=== PATIENT | female | born 2005 | race Caucasian/White ===

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

== ENCOUNTER 2024-03-03 07:02 | Emergency (ER) | payer SELFPAY ==
[2024-03-03 07:02] VITALS: BP 132/72; PULSE 75; RESP 14; TEMP 36.3; O2SAT 98; BMI 29.2
--- NOTE | 2024-03-03 07:30 | US_ITS ---
STUDY: ULTRASOUND OF THE FEMALE PELVIS - COMPLETE REASON FOR EXAM: Female, 18 years old. Right pelvic pain LMP: December 29, 2023. TECHNIQUE: Transvaginal TECHNICAL QUALITY: Adequate. COMPARISON: None. FINDINGS: The uterus is anteflexed and is tilted to the right side of the pelvis. The uterus measures 7 cm x 4.2 cm x 3 cm. Normal uterine cervix. The endometrium measures 3.8 mm in thickness, and is hyperechoic. There is no demonstrated endometrial mass. There is no demonstrated myometrial mass. I.U.D. - The patient does not have an I.U.D. The right ovary is visualized. The right ovary measures 2.8 cm x 1.9 cm x 2.3 cm. There is no right ovarian cyst or ovarian mass. There is no visualized right adnexal mass or complex lesion. There is normal arterial and normal venous vascularity. The left ovary is non-visualized due to overlying bowel gas. There is minimal fluid in the cul-de-sac. US/Transvaginal Non- IMPRESSION: Normal female pelvis. Nonvisualization of the left ovary due to overlying bowel gas. Minimal amount of free fluid in the cul-de-sac. Electronically Signed: Cheo Beck MD at 8:42 EDT ,
--- NOTE | 2024-03-03 07:31 | EX.ED.DYSGE1 ---
HPI History of Present Illness Chief Complaint: Nausea/Vomiting Informant: patient Narrative Narrative: 18-year-old female presenting to the emergency room with right sided pelvic pain and vomiting. Patient states that about 5 weeks ago she was experiencing an increase in pelvic pain 2 weeks after starting the ring. She states that she talked to Dr. Vines from [facility] who recommended that she remove the ring and go to the emergency room for imaging which she declined. Patient states now she has been without the ring for about 5 weeks. Last Saturday she began to experience increased pelvic cramping and on began vaginal bleeding which she attributed to the start of her period. She states that she has had increased bleeding/clotting as well as cramping. She notes that yesterday and this morning she was vomiting. She states that she vomits most mornings for an unknown reason. She denies any other medications. No other medical issues. No prior surgeries. She denies fever or vaginal discharge. No urinary symptoms. She notes pain in the right lower pelvis is worse than the left and radiates to the low back. PFSH PFS Medical History no medical history Home Medications ?Medication ?Instructions ?Recorded ?Last Taken ?Type pediatric multivitamin no.17 1 ea PO DAILY 12/08/15 Unknown History (Animal Shapes chewable tablet) famotidine 20 mg tablet 20 mg PO BID #28 TABLETS 12/28/20 Unknown Rx ondansetron 4 mg disintegrating 4 mg PO Q8H PRN PRN Nausea #10 tabs 12/28/20 Unknown Rx tablet hydrocodone-acetaminophen 5-325mg 1 tab PO Q6H PRN PRN Pain 3 days 03/03/24 Unknown Rx 5mg-325mg #12 TABLETS ondansetron 4 mg disintegrating 4 mg PO Q6H PRN PRN Nausea #12 tabs 03/03/24 Unknown Rx tablet Allergy/AdvReac Type Severity Reaction Status Date / Time azithromycin (From Zithromax Allergy Unknown Verified 12/28/20 11:11 Z-Everton) Family History no significant family his Surgical History no surgical history Social History Smoking Status: Never smoker ROS ROS ED Constitutional Constitutional ED: Denies chills, fever(s) or weight loss Eyes Eyes: Denies change in vision or diplopia ENT ENT ED: Denies ear pain, rhinorrhea or sore throat Cardiovascular Cardiovascular: Denies chest pain, orthopnea, palpitations or racing heartbeat Respiratory/Chest Respiratory/Chest: Denies cough, dyspnea or orthopnea Gastrointestinal Gastrointestinal: Denies abdominal pain, diarrhea, nausea or vomiting Genitourinary Genitourinary ED: Reports other Details: Pelvic cramping, heavier menstrual flow with clots ; Denies dysuria, hematuria or urinary frequency Musculoskeletal Musculoskeletal: Reports back pain; Denies arthralgias, myalgias or neck pain Integumentary Denies abscess or rash Neurologic Neurologic: Denies headache(s) or weakness Psychiatric Psychiatric: Denies anxiety, depression, suicidal ideation or suicidal thoughts Endocrine Endocrinology: Denies polydipsia, polyphagia or polyuria Allergic/Immunologic Allergic/Immunologic ED: Denies mouth swelling, tongue swelling or urticaria EXAM Physical Exam Narrative Exam Narrative: 18-year-old female laying comfortably in the bed. She lays supine with hips flexed and feet on the bed. She moves easily. Const Vital Signs: 03/03/24 07:02 03/03/24 09:07 Temperature 97.3 F L Temperature Source Temporal Pulse Rate 75 57 L Respiratory Rate 14 16 Blood Pressure 132/72 H 120/75 Blood Pressure Mean 92 90 Pulse Ox 98 99 Oxygen Delivery Method Room Air Room Air Positive well nourished and well developed General Appearance ED: well developed HEENT Reports normocephalic, head/scalp atraumatic and moist mucous membranes Eyes PERRL and EOMs intact bilaterally Neck no lymphadenopathy, supple and no JVD Resp normal respiratory effort and clear to auscultation bilaterally Cardio regular rate, regular rhythm and no murmurs GI GI Narrative: Patient reports mild tenderness to palpation without guarding or rebound the bilateral pelvis. The abdomen is soft. Inspection: Negative for abdominal distention Auscultation: normoactive bowel sounds Palpation: soft and tender; Negative for guarding or rebound tenderness present Back/Spine no CVA tenderness and normal ROM Extremity normal to inspection General Extremety ED: Negative for edema General Extremity: Negative for edema Neuro oriented x3 and CN's II-XII intact bilaterally Sensorium / Orientation: alert Motor Exam: strength 5/5 throughout Psych mental status grossly normal Mood & Affect: Negative for depressed or tearful Skin no rashes or lesions noted and no wounds MDM MDM MDM Narrative Medical decision making narrative: Differential diagnosis includes but not limited to ovarian torsion ovarian cyst menstrual cramps pelvic abscess UTI kidney stone ectopic hormonal dysregulation White count 10.4 with hemoglobin 12.9 platelet count is 439. Urinalysis with 10-25 red blood cells no overt infection. Red blood cells are most likely contamination from the menstrual cycle. test is negative. Pelvic ultrasound was obtained which shows a mild amount of free fluid in the cul-de-sac. Left ovary not visualized due to overlying bowel gas. But the side of the pain is on the right which does not demonstrate ovarian cyst or abscess or abnormal fluid collection. Patient received IV fluids and Zofran. With the patient to have menstrual cramps. Vomiting can be multifactorial and certainly from pain. Given that she discontinued use of the NuvaRing a couple weeks ago and is now having a heavier than normal cycle hormonal dysregulation would be favored. Patient to schedule follow-up appointment with her [facility]. History & Record Review Discussion w/independent historian: Patient Lab Data Attestation: I reviewed the patient's lab results. Labs: Laboratory Results - last 24 hr 03/03/24 03/03/24 07:37 07:45 WBC 10.4 RBC 5.09 Hgb 12.9 Hct 40.9 MCV 80.4 L MCH 25.3 L MCHC 31.5 L RDW Std Deviation 40.6 RDW Coeff of Can 14.0 Plt Count 439 MPV 9.4 Immature Gran % (Auto) 0.500 Neut % (Auto) 81.5 H Lymph % (Auto) 14.1 L [place] % (Auto) 2.8 Eos % (Auto) 0.5 Baso % (Auto) 0.6 Absolute Neuts (auto) 8.5 H Absolute Lymphs (auto) 1.47 Nucleated RBC % 0 Serum , Qual NEGATIVE Urine Color Yellow Urine Clarity Sl. Cloudy Urine pH 6.0 Ur Specific [place] 1.020 Urine Protein Negative Urine Glucose (UA) Normal Urine Ketones Negative Urine Occult Blood 150 H Urine Nitrite Negative Urine Bilirubin Negative Urine Urobilinogen Normal Ur Leukocyte Esterase Negative Urine RBC 10-25 SEEN Urine WBC 0 SEEN Ur Squamous Epith Cells 0-5 SEEN Urine Bacteria 0 SEEN Urine Mucus 0 SEEN Radiography Diagnostic Testing: Clinical Impression(s) from Imaging Studies Transvaginal US 03/03/24 07:30 IMPRESSION: Normal female pelvis. Nonvisualization of the left ovary due to overlying bowel gas. Minimal amount of free fluid in the cul-de-sac. Electronically Signed: Cheo Beck MD at 8:42 EDT , Discharge Plan Triage Chief Complaint: Nausea/Vomiting ED Provider: Stevan Hernadez Dx/Rx/DC Orders Clinical Impression: Menstrual cramps, Vomiting Instructions: ED MENSTRUAL CRAMPING, ED Vomiting (Adult) Prescriptions: New hydrocodone-acetaminophen 5-325 mg tablet 1 tab PO Q6H PRN PRN (Reason: Pain) 3 Days Qty: 12 0RF ondansetron 4 mg tablet,disintegrating 4 mg PO Q6H PRN PRN (Reason: Nausea) Qty: 12 0RF No Action pediatric multivitamin no.17 [Animal Shapes] 1 EACH tablet,chewable 1 ea PO DAILY famotidine 20 MG tablet 20 mg PO BID Qty: 28 0RF ondansetron 4 MG tablet 4 mg PO Q8H PRN PRN (Reason: Nausea) Qty: 10 0RF Primary Care Provider: Berta Hay Referrals: Berta Hay MD [Primary Care Provider] - Arlene Vines MD [Med Staff - Active Staff] - 10-14 Days if not better Print Language: Icelandic Disposition Disposition: Home, Self Care
[2024-03-03] MEDS: Ondansetron 4 MG/2 ML Vial IV (07:39)
[2024-03-03] MEDS: 0.9% Normal Saline (1000mL) 1,000 ML 999 ML IV (07:39)
[2024-03-03 07:47] LABS: Bacteria 0 SEEN /hpf (None Seen); Mucous, Urine 0 SEEN /hpf (<or=2+); White Blood Cells 0 SEEN /hpf (0-5)
[2024-03-03 08:16] LABS: Absolute Lymphocyte Count 1.47 X10^3/uL (0.83-4.51); Absolute Neutrophil Count 8.5 X10^3/uL (2.0-7.7); Basophil# 0.06 X10^3/uL; Basophil% 0.6 % (0-1); Eosinophil# 0.05 X10^3/uL; Eosinophils% 0.5 % (0-5); Hematocrit 40.9 % (37-47); Hemoglobin 12.9 g/dL (12.0-15.0); Lymphocyte # 1.47 X10^3/ul (0.83-4.51); Lymphocyte % 14.1 % (19-41); Mean Corp Hgb Conc 31.5 g/dL (32-36); Mean Corpuscular Hgb 25.3 pg (27.0-32.0); Mean Corpuscular Volume 80.4 fL (81-99); Mean Platelet Vol. 9.4 fl (6.2-12.0); Monocyte# 0.29 X10^3/uL; Monocyte% 2.8 % (0-10); NRBC Flagged by Analyzer 0 % (0-5); Neutrophil # 8.47 X10^3/uL (2.7-7.7); Neutrophil % 81.5 % (47-70); Platelet Count 439 K/mm3 (150-450); RBC Distribution Width SD 40.6 fl (35.1-43.9); Red Blood Count 5.09 M/mm3 (4.2-5.4); White Blood Count 10.4 K/mm3 (4.4-11.0)
[2024-03-03 08:18] LABS: Internal QC Validated? YES +Cl - CLEAR BKGD; Pregnancy, Serum, hCG Quali. NEGATIVE Negative
[2024-03-03 08:19] LABS: Color, Urine Yellow (Yellow); Glucose, Dipstick Normal (Normal); Ketone-Dipstick Negative (Negative); Leukocyte Esterase-Dipstick Negative /ul (Negative); Nitrite-Dipstick Negative (Negative); Occult Blood-Urine 150 /ul (Negative); Protein-Dipstick Negative (Negative); Urine Bilirubin Dipstick Negative (Negative); Urine Clarity Sl. Cloudy (Clear); Urine Urobilinogen Normal (Normal)
[2024-03-03 08:55] LABS: Red Blood Cells-Urine 10-25 SEEN /hpf (0-5); Squamous Epithelial Cells - UA 0-5 SEEN /hpf (5-10)
[2024-03-03 09:07] VITALS: BP 120/75; PULSE 57; RESP 16; O2SAT 99
== END 2024-03-03 10:04 | disposition home or self-care (01) ==
PROVIDERS: Emergency Provider Emergency Medicine; PCP Pediatrics; Visit Provider Emergency Medicine
DX: R10.2 Pelvic and perineal pain (principal); R11.2 Nausea with vomiting, unspecified
CPT/HCPCS: 76830; 81001; 84703; 85025; 96374; 99283; J7030; A4216; J2405

== ENCOUNTER 2024-07-13 08:31 | Emergency (ER) | payer SELFPAY ==
[2024-07-13 08:32] VITALS: BP 142/85; PULSE 87; RESP 16; TEMP 36.9; O2SAT 100; BMI 24.4
[2024-07-13 09:05] LABS: Color, Urine Yellow (Yellow); Glucose, Dipstick Normal (Normal); Ketone-Dipstick 5 mg/dl (Negative); Leukocyte Esterase-Dipstick 500 /ul (Negative); Mucous, Urine 0 SEEN /hpf (<or=2+); Nitrite-Dipstick Negative (Negative); Occult Blood-Urine 150 /ul (Negative); Protein-Dipstick 30 mg/dl (Negative); Urine Bilirubin Dipstick Negative (Negative); Urine Clarity Cloudy (Clear); Urine Urobilinogen Normal (Normal)
--- NOTE | 2024-07-13 09:09 | ED.VIS.FEGU ---
HPI HPI - Female History of Present Illness Chief Complaint: Complaint Narrative Narrative: Chief complaint and HPI: Dysuria. 18-year-old female presents for evaluation of dysuria. No significant past medical history. Patient states for the past couple days she has had dysuria. She states she has been drinking water and cranberry juice without any improvement. She states this feels similar to previous UTIs. Patient does have a new sexual partner. She denies any concern for STIs. She denies any vaginal discharge or complaint. Last menstrual cycle was a month and a half ago. Denies possibility of . States she may have had a fever yesterday because she felt warm for a little bit. Did not check her temperature. Denies any chest pain, shortness of breath, abdominal pain, nausea, vomiting. Review of systems: See HPI Medications: As listed on the chart Allergies: As listed on the chart PFSH: Per chart Vital signs: As listed on the chart. Reviewed. Physical exam: Gen: A&O x3, NAD Head: Normocephalic, atraumatic Eyes: No sclera icterus, conjunctiva clear ENT: Moist mucous membranes Neck: Trachea midline, No JVD CV: RRR, no murmurs, no peripheral edema Resp: Lungs CTA BL, no w/r/c GI: Abd soft, non-distended, mildly tender to palpation suprapubic, no r/r/g : No CVA tenderness Musc: Full ROM, no deformity Skin: Warm, dry Neuro: Alert, oriented, grossly intact, sensation intact Psych: Cooperative, appropriate mood and affect PFSH PFSH Medical History no medical history Home Medications ?Medication ?Instructions ?Recorded ?Last Taken ?Type pediatric multivitamin no.17 1 ea PO DAILY 12/08/15 Unknown History (Animal Shapes chewable tablet) famotidine 20 mg tablet 20 mg PO BID #28 TABLETS 12/28/20 Unknown Rx ondansetron 4 mg disintegrating 4 mg PO Q8H PRN PRN Nausea #10 tabs 12/28/20 Unknown Rx tablet hydrocodone-acetaminophen 5-325mg 1 tab PO Q6H PRN PRN Pain 3 days 03/03/24 Unknown Rx 5mg-325mg #12 TABLETS ondansetron 4 mg disintegrating 4 mg PO Q6H PRN PRN Nausea #12 tabs 03/03/24 Unknown Rx tablet Allergy/AdvReac Type Severity Reaction Status Date / Time azithromycin (From Zithromax Allergy Unknown Verified 07/13/24 08:32 Z-Ever[facility]) Family History no significant family his Surgical History no surgical history Social History Smoking Status: Never smoker EXAM Physical Exam Const Vital Signs: 07/13/24 08:32 Temperature 98.5 F Temperature Source Oral Pulse Rate 87 Respiratory Rate 16 Blood Pressure 142/85 H Blood Pressure Mean 104 Pulse Ox 100 Oxygen Delivery Method Room Air MDM MDM MDM Narrative Medical decision making narrative: 18-year-old female presents for evaluation of dysuria. Differential diagnosis includes is not limited to UTI, pyelonephritis, STI. Patient denies any vaginal complaints. Denies concern for STI. Was offered treatment for STI but declined. Agreeable for STD testing. Will obtain basic labs given her possible symptomatic fever. UA and STD testing obtained with urine . CBC without leukocytosis. CBC with mild leukocytosis of 11.2. No anemia. BMP without MARTI. UA positive for UTI as well as mild dehydration with ketones. Urine negative. STI workup pending. Patient's symptoms are likely secondary to UTI. She has no CVA tenderness or fever to suggest pyelonephritis. Patient will be placed on Keflex. Follow-up with PCP with repeat urine given that she does have blood in her urine. This has been seen on previous UA as well. She is [facility] as she currently does not want treatment. She confirmed understanding of the plan. Impression: 1. UTI Lab Data Labs: Laboratory Results - last 24 hr 07/13/24 07/13/24 08:54 09:03 WBC 11.2 H RBC 4.96 Hgb 13.2 Hct 41.4 MCV 83.5 MCH 26.6 L MCHC 31.9 L RDW Std Deviation 39.8 RDW Coeff of Can 13.2 Plt Count 388 MPV 9.4 Immature Gran % (Auto) 0.500 Neut % (Auto) 74.4 H Lymph % (Auto) 15.9 L [place] % (Auto) 7.5 Eos % (Auto) 1.0 Baso % (Auto) 0.7 Absolute Neuts (auto) 8.3 H Absolute Lymphs (auto) 1.77 Nucleated RBC % 0 Sodium 140 Potassium 3.7 Chloride 109 H Carbon Dioxide 23.0 Anion Gap 8 BUN 11 Creatinine 0.90 Estim Creat Clear Calc 90.47 Est GFR (MDRD) Af Amer 103 Est GFR (MDRD) Non-Af 85 BUN/Creatinine Ratio 12.2 Glucose 116 H Calcium 9.2 Urine Color Yellow Urine Clarity Cloudy Urine pH 6.0 Ur Specific [place] 1.020 Urine Protein 30 H Urine Glucose (UA) Normal Urine Ketones 5 H Urine Occult Blood 150 H Urine Nitrite Negative Urine Bilirubin Negative Urine Urobilinogen Normal Ur Leukocyte Esterase 500 H Urine RBC 0-5 SEEN Urine WBC >100 SEEN Ur Squamous Epith Cells 0-5 SEEN Urine Bacteria 1+ Urine Mucus 0 SEEN Urine Test Negative Discharge Plan Triage Chief Complaint: Complaint ED Provider: Vignesh Campa Dx/Rx/DC Orders Prescriptions: No Action pediatric multivitamin no.17 [Animal Shapes] 1 EACH tablet,chewable 1 ea PO DAILY famotidine 20 MG tablet 20 mg PO BID Qty: 28 0RF ondansetron 4 MG tablet 4 mg PO Q8H PRN PRN (Reason: Nausea) Qty: 10 0RF hydrocodone-acetaminophen 5-325 mg tablet 1 tab PO Q6H PRN PRN (Reason: Pain) 3 Days Qty: 12 0RF ondansetron 4 mg tablet,disintegrating 4 mg PO Q6H PRN PRN (Reason: Nausea) Qty: 12 0RF Primary Care Provider: Berta Hay Referrals: Berta Hay MD [Primary Care Provider] - Print Language: Occitan
[2024-07-13 09:12] LABS: Absolute Lymphocyte Count 1.77 X10^3/uL (0.83-4.51); Absolute Neutrophil Count 8.3 X10^3/uL (2.0-7.7); Basophil# 0.08 X10^3/uL; Basophil% 0.7 % (0-1); Eosinophil# 0.11 X10^3/uL; Hematocrit 41.4 % (37-47); Hemoglobin 13.2 g/dL (12.0-15.0); Lymphocyte # 1.77 X10^3/ul (0.83-4.51); Lymphocyte % 15.9 % (19-41); Mean Corp Hgb Conc 31.9 g/dL (32-36); Mean Corpuscular Hgb 26.6 pg (27.0-32.0); Mean Corpuscular Volume 83.5 fL (81-99); Mean Platelet Vol. 9.4 fl (6.2-12.0); Monocyte# 0.84 X10^3/uL; Monocyte% 7.5 % (0-10); NRBC Flagged by Analyzer 0 % (0-5); Neutrophil % 74.4 % (47-70); Platelet Count 388 K/mm3 (150-450); RBC Distribution Width CV 13.2 % (11.6-14.6); RBC Distribution Width SD 39.8 fl (35.1-43.9); Red Blood Count 4.96 M/mm3 (4.2-5.4); White Blood Count 11.2 K/mm3 (4.4-11.0)
[2024-07-13 09:14] LABS: White Blood Cells >100 SEEN /hpf (0-5)
[2024-07-13 09:15] LABS: Bacteria 1+ /hpf (None Seen); Red Blood Cells-Urine 0-5 SEEN /hpf (0-5); Squamous Epithelial Cells - UA 0-5 SEEN /hpf (5-10)
[2024-07-13 09:16] LABS: Internal QC Validated? YES +Cl - CLEAR BKGD; Pregnancy, Urine Negative Negative
[2024-07-13 09:45] LABS: Anion Gap 8 (5-15); BUN 11 mg/dL (7-18); BUN/Creat Ratio 12.2 RATIO (10-20); Calcium,Total 9.2 mg/dL (8.5-10.1); Chloride 109 mmol/L (98-107); EST Glomerular Filtration Rate 85 mL/min (>60); Est Glom Filt Rate - Afr Amer 103 mL/min (>60); Estimated Creatinine Clearance 90.47 ml/min; Glucose 116 mg/dL (74-106); Potassium 3.7 mmol/L (3.5-5.1); Sodium Level 140 mmol/L (136-145)
[2024-07-13 10:31] VITALS: BP 130/77; PULSE 79; RESP 16; TEMP 36.7; O2SAT 99
== END 2024-07-13 10:32 | disposition home or self-care (01) ==
PROVIDERS: Emergency Provider Surgery; PCP Pediatrics; Visit Provider Surgery
DX: N39.0 Urinary tract infection, site not specified (principal); E86.0 Dehydration; Z87.440 Personal history of urinary (tract) infections
CPT/HCPCS: 80048; 81001; 81025; 85025; 87077; 87086; 87088; 87186; 87491; 87591; 87661; 99282

== ENCOUNTER 2024-07-17 14:43 | Emergency (ER) | payer SELFPAY ==
[2024-07-17 14:44] VITALS: BP 118/58; PULSE 88; RESP 16; TEMP 36.8; O2SAT 98; BMI 25.0
== END 2024-07-17 16:26 | disposition left against medical advice (07) ==
LOC: ED 16:28
PROVIDERS: PCP Pediatrics
DX: Z53.21 Procedure and treatment not carried out due to patient leaving prior to being seen by health care provider (principal)

== ENCOUNTER 2025-02-01 22:24 | Emergency (ER) | payer SELFPAY ==
[2025-02-01 22:25] VITALS: BP 136/88; PULSE 92; RESP 18; TEMP 36.3; O2SAT 98; BMI 27.3
--- NOTE | 2025-02-01 22:40 | US_ITS ---
PROCEDURE: TRANSVAGINAL NON- 02/01/2025 REASON FOR EXAM: PELVIC PAIN TECHNIQUE: Transvaginal pelvic ultrasound FINDINGS: Measurements: Uterus: 5.0 x 3.6 x 2.3 with a volume of mL Endometrial Thickness: 3 mm Right Ovary: 3.8 x 2.2 x 2.2 with a volume of mL. Left Ovary: 2.1 x 2.1 x 1.4 with a volume of mL. Uterus: Anteverted. Normal morphology and echogenicity. Endometrium: Hyperechoic Right ovary: Normal morphology and echogenicity. Left ovary: Normal morphology and echogenicity. Other: Small amount of free fluid in the cul-de-sac. US/Transvaginal Non- IMPRESSION: Normal pelvic ultrasound. Reading Location: [id number]
[2025-02-01] MEDS: 0.9% Normal Saline (1000mL) 1,000 ML 999 ML IV (23:05)
[2025-02-01] MEDS: Orphenadrine 60 MG/2 ML Ampul IM (23:05)
[2025-02-01 23:13] LABS: Mucous, Urine 0 SEEN /hpf (<or=2+); Red Blood Cells-Urine 0 SEEN /hpf (0-5)
[2025-02-01 23:15] LABS: Absolute Lymphocyte Count 1.95 X10^3/uL (0.83-4.51); Absolute Neutrophil Count 5.4 X10^3/uL (2.0-7.7); Basophil# 0.06 X10^3/uL; Basophil% 0.7 % (0-1); Eosinophil# 0.09 X10^3/uL; Eosinophils% 1.1 % (0-5); Hematocrit 41.8 % (37-47); Hemoglobin 14.2 g/dL (12.0-15.0); Lymphocyte # 1.95 X10^3/ul (0.83-4.51); Lymphocyte % 23.4 % (19-41); Mean Corpuscular Hgb 27.5 pg (27.0-32.0); Mean Platelet Vol. 9.1 fl (6.2-12.0); Monocyte# 0.78 X10^3/uL; Monocyte% 9.4 % (0-10); NRBC Flagged by Analyzer 0 % (0-5); Neutrophil # 5.44 X10^3/uL (2.7-7.7); Neutrophil % 65.2 % (47-70); Platelet Count 470 K/mm3 (150-450); RBC Distribution Width CV 12.5 % (11.6-14.6); RBC Distribution Width SD 36.3 fl (35.1-43.9); Red Blood Count 5.16 M/mm3 (4.2-5.4); White Blood Count 8.3 K/mm3 (4.4-11.0)
[2025-02-01 23:20] LABS: Color, Urine Yellow (Yellow); Glucose, Dipstick Normal (Normal); Ketone-Dipstick Negative (Negative); Leukocyte Esterase-Dipstick Negative /ul (Negative); Nitrite-Dipstick Negative (Negative); Occult Blood-Urine 25 /ul (Negative); Protein-Dipstick 15 mg/dl (Negative); Urine Bilirubin Dipstick Negative (Negative); Urine Clarity Clear (Clear); Urine Urobilinogen Normal (Normal); Urine pH 6.5 (5.0 - 8.0)
[2025-02-01 23:33] LABS: Bacteria 2+ /hpf (None Seen); Squamous Epithelial Cells - UA 0-5 SEEN /hpf (5-10); White Blood Cells 0-5 SEEN /hpf (0-5)
[2025-02-01 23:35] LABS: Anion Gap 13 (5-15); BUN 8 mg/dL (4-19); BUN/Creat Ratio 10.9 RATIO (10-20); Calcium,Total 9.4 mg/dL (7.6-11.0); Carbon Dioxide 23.5 mmol/L (21.0-32.0); Chloride 102 mmol/L (98-108); Creatinine, Serum 0.73 mg/dL (0.70-1.20); EST Glomerular Filtration Rate 122 (>60); Estimated Creatinine Clearance 124.14 ml/min (50-250); Glucose 95 mg/dL (70-99); Potassium 3.6 mmol/L (3.3-5.1); Sodium Level 139 mmol/L (133-145)
[2025-02-01 23:49] LABS: Internal QC Validated? YES +Cl - CLEAR BKGD; Pregnancy, Serum, hCG Quali. NEGATIVE Negative
--- NOTE | 2025-02-01 23:56 | ED.VIS.FEGU ---
HPI HPI - Female History of Present Illness Chief Complaint: Vag Bleeding Informant: patient and spouse/S.O. Narrative Narrative: Patient is a 19-year-old female with past medical history of ADHD currently on Adderall. She states that she had her menstrual cycle at the roughly 2 weeks ago which was normal for her. She states the bleeding lasted per its usual timeframe and then resolved. She states she has been doing well but that today she had return of bleeding and is passing clots and having lower abdominal cramping/pain. She denies any vaginal discharge or dysuria. She states she is not on any type of hormone therapy. She states that she is scheduled to see an [employer] AR[employer]ANGEMENT COUNSELOR to discuss control and roughly 1 week but with the recurrent bleeding and pain she presents for evaluation. PFSH PFSH Medical History no medical history Home Medications ?Medication ?Instructions ?Recorded ?Last Taken ?Type pediatric multivitamin no.17 1 ea PO DAILY 12/08/15 Unknown History (Animal Shapes chewable tablet) famotidine 20 mg tablet 20 mg PO BID #28 TABLETS 12/28/20 Unknown Rx ondansetron 4 mg disintegrating 4 mg PO Q8H PRN PRN Nausea #10 tabs 12/28/20 Unknown Rx tablet hydrocodone-acetaminophen 5-325mg 1 tab PO Q6H PRN PRN Pain 3 days 03/03/24 Unknown Rx 5mg-325mg #12 TABLETS ondansetron 4 mg disintegrating 4 mg PO Q6H PRN PRN Nausea #12 tabs 03/03/24 Unknown Rx tablet cephalexin 500 mg capsule 500 mg PO BID 5 days #10 caps 07/13/24 Unknown Rx Allergy/AdvReac Type Severity Reaction Status Date / Time azithromycin (From Zithromax Allergy Unknown Verified 02/01/25 22:27 Z-[place]) Family History no significant family his Surgical History no surgical history Social History Smoking Status: Never smoker ROS ROS ED Constitutional Constitutional ED: Denies chills or fever(s) Eyes Eyes: Denies change in vision ENT ENT ED: Denies sore throat Cardiovascular Cardiovascular: Denies chest pain Respiratory/Chest Respiratory/Chest: Denies cough or dyspnea Gastrointestinal Gastrointestinal: Reports abdominal pain; Denies diarrhea, nausea or vomiting Genitourinary Genitourinary ED: Reports other Details: Positive vaginal bleeding ; Denies dysuria or urinary frequency Musculoskeletal Musculoskeletal: Denies myalgias Integumentary Denies rash Neurologic Neurologic: Denies headache(s) Hematologic/Lymphatic Hematologic/Lymphatic: Denies easy bleeding or easy bruising EXAM Physical Exam Const Vital Signs: 02/01/25 22:25 Temperature 97.4 F L Temperature Source Temporal Pulse Rate 92 Respiratory Rate 18 Blood Pressure 136/88 H Blood Pressure Mean 104 Pulse Ox 98 Oxygen Delivery Method Room Air Positive well nourished and well developed General Appearance ED: well developed; Negative for pallor HEENT HEENT Narrative: Normocephalic atraumatic Eyes PERRL and EOMs intact bilaterally General Eye ED: Negative for pale conjunctiva or scleral icterus Neck supple Resp normal respiratory effort and clear to auscultation bilaterally Cardio regular rate and regular rhythm GI soft to palpation, non-distended and no masses GI Narrative: Abdomen is soft and nondistended with normal active bowel sounds. There is pain on palpation in the suprapubic region without voluntary guarding or rigidity or pulsatile mass. Auscultation: normoactive bowel sounds Palpation: soft Narrative: Patient deferred Back/Spine no CVA tenderness Extremity normal to inspection and full ROM Neuro oriented x3, CN's II-XII intact bilaterally and no sensory deficits noted Sensorium / Orientation: alert Motor Exam: strength 5/5 throughout Psych mental status grossly normal Skin no rashes or lesions noted and no wounds General Skin Exam: Negative for jaundice or pallor MDM MDM MDM Narrative Medical decision making narrative: Patient arrived to the ER with stable vitals. She reported a second menstrual cycle 10 days after the first with pain and clots. Differential diagnosis is for dysfunctional uterine bleeding versus complication versus ovarian pathology such as a hemorrhagic cyst versus UTI versus acute blood loss anemia. Basic blood work obtained which shows stable H&H going against blood loss anemia patient is not going against a complication and urine sample shows no signs of infection. Patient does have +2 bacteria but there are no white blood cells and nitrite exam is negative and I feel this is normal miranda and there is no need for antibiotic. The patient's ultrasound showed no sign of structural pathology such as an ovarian cyst or torsion or fibroid. After receiving IV fluid and Norflex she did report feeling better and her vitals remained stable. Therefore there is no need for emergent [employer] COUNSELOR intervention and she can follow-up as an outpatient to discuss hormone therapy and further testing. Plan of care was discussed with the patient who is agreeable to it and therefore should be discharged at this time History & Record Review Discussion w/independent historian: Patient and Significant other Lab Data Attestation: I reviewed the patient's lab results. Labs: Laboratory Results - last 24 hr 02/01/25 23:05 WBC 8.3 RBC 5.16 Hgb 14.2 Hct 41.8 MCV 81.0 MCH 27.5 MCHC 34.0 RDW Std Deviation 36.3 RDW Coeff of Can 12.5 Plt Count 470 H MPV 9.1 Immature Gran % (Auto) 0.200 Neut % (Auto) 65.2 Lymph % (Auto) 23.4 Dawson % (Auto) 9.4 Eos % (Auto) 1.1 Baso % (Auto) 0.7 Absolute Neuts (auto) 5.4 Absolute Lymphs (auto) 1.95 Nucleated RBC % 0 Sodium 139 Potassium 3.6 Chloride 102 Carbon Dioxide 23.5 Anion Gap 13 BUN 8 Creatinine 0.73 Estim Creat Clear Calc 124.14 Est GFR (MDRD) Non-Af 122 BUN/Creatinine Ratio 10.9 Glucose 95 Calcium 9.4 Serum , Qual NEGATIVE Urine Color Yellow Urine Clarity Clear Urine pH 6.5 Ur Specific [place] 1.010 Urine Protein 15 H Urine Glucose (UA) Normal Urine Ketones Negative Urine Occult Blood 25 H Urine Nitrite Negative Urine Bilirubin Negative Urine Urobilinogen Normal Ur Leukocyte Esterase Negative Urine RBC 0 SEEN Urine WBC 0-5 SEEN Ur Squamous Epith Cells 0-5 SEEN Urine Bacteria 2+ Urine Mucus 0 SEEN Radiography Diagnostic Testing: Clinical Impression(s) from Imaging Studies Transvaginal US 02/01/25 22:40 IMPRESSION: Normal pelvic ultrasound. Reading Location: [id number] Discharge Plan Triage Chief Complaint: Vag Bleeding ED Provider: Lacho Chappell Dx/Rx/DC Orders Clinical Impression: DUB (dysfunctional uterine bleeding), ADHD Instructions: ED Dysfunctional Uterine Bleeding Prescriptions: No Action pediatric multivitamin no.17 [Animal Shapes] 1 EACH tablet,chewable 1 ea PO DAILY famotidine 20 MG tablet 20 mg PO BID Qty: 28 0RF ondansetron 4 MG tablet 4 mg PO Q8H PRN PRN (Reason: Nausea) Qty: 10 0RF hydrocodone-acetaminophen 5-325 mg tablet 1 tab PO Q6H PRN PRN (Reason: Pain) 3 Days Qty: 12 0RF ondansetron 4 mg tablet,disintegrating 4 mg PO Q6H PRN PRN (Reason: Nausea) Qty: 12 0RF cephalexin 500 mg capsule 500 mg PO BID 5 Days Qty: 10 0RF Primary Care Provider: Berta Hay Referrals: Berta Hay MD [Primary Care Provider] - Activity Restrictions/Additional Instructions: Your labs showed no signs of acute blood loss or secondary infection. Your ultrasound shows no structural abnormality and your test was negative. This indicates that your symptoms are related to dysfunctional uterine bleeding which typically require hormone replacement therapy to treat. Please follow-up with your [employer] AR[employer]ANGEMENT COUNSELOR to discuss this and return to the ER should you have any further concerns Print Language: Palauan Disposition Disposition: Home, Self Care
[2025-02-02 00:05] VITALS: BP 112/77; PULSE 68; RESP 18; TEMP 36.8; O2SAT 100
== END 2025-02-02 00:09 | disposition home or self-care (01) ==
PROVIDERS: Emergency Provider Emergency Medicine; PCP Pediatrics; Visit Provider Emergency Medicine
DX: N93.8 Other specified abnormal uterine and vaginal bleeding (principal); F90.9 Attention-deficit hyperactivity disorder, unspecified type; Z79.899 Other long term (current) drug therapy
CPT/HCPCS: 76830; 80048; 81001; 84703; 85025; 96360; 96372; 99283; A4216

== ENCOUNTER 2025-09-27 19:17 | Emergency (ER) | payer MEDICAID, SELFPAY ==
[2025-09-27 19:18] VITALS: BP 138/83; PULSE 99; RESP 20; TEMP 36.2; O2SAT 100; BMI 28.2
== END 2025-09-27 20:18 | disposition left against medical advice (07) ==
LOC: ED 20:22
PROVIDERS: PCP Pediatrics
DX: Z53.21 Procedure and treatment not carried out due to patient leaving prior to being seen by health care provider (principal)